=== PATIENT | female | born 1935 | race Caucasian/White ===

== ENCOUNTER 2017-05-31 11:04 | Emergency (ER) | payer MEDICARE, BC ==
[~2017-05-31] VITALS: Ht 167.6 cm; Wt 90.0 kg
[2017-05-31] MEDS ORDERED: normal saline 1000ML IV soln IVB ONE (12:50)
[2017-05-31] MEDS ORDERED: proCHLORperazine 10 MG/2 ml inj IV ONE (12:50)
[2017-05-31] MEDS ORDERED: ondansetron/PF 4mg/2ml inj IV ONE (12:50)
[2017-05-31] MEDS ORDERED: morphine 4 MG/ML inj SYRINge IV ONE (13:00)
[2017-05-31] MEDS ORDERED: niCARDipine/sod cl 20mg/200ml 200 ML IV ONE (13:00)
[2017-05-31] MEDS ORDERED: iohexol 350MG/ML 100ml bottle IV ONE (13:21)
[2017-05-31 18:30] VITALS: BP 145/60
== END 2017-05-31 13:55 | disposition short-term general hospital (02) ==
LOC: ER 11:04
DX: I60.9 Nontraumatic subarachnoid hemorrhage, unspecified (principal); I69.354 Hemiplegia and hemiparesis following cerebral infarction affecting left non-dominant side; G44.82 Headache associated with sexual activity; E78.00 Pure hypercholesterolemia, unspecified; I10 Essential (primary) hypertension
CPT/HCPCS: 70450; 70496; 70498; 96374; 99291; J2405; J7030; Q9967; J0780